=== PATIENT | female | born 1940 | race Caucasian/White ===

== ENCOUNTER → 2017-10-19 | Outpatient (CLI) | payer MEDICARE ==
[2016-09-01 03:33] VITALS: BP 158/70
[~2017-10-19] MED LIST: ACET650T89 PO; AMIO200T2 PO; ASPI-630 PO; ATOR20TA58 PO; CALC-98 PO; CEPH-264 PO; FERR-26 PO; OMEG1CAP6 PO; RIVA10TA PO; SERT50TA8 PO; SPIR25TA3 PO; SULF1TAB24 PO; TRAM50TA PO; [UNRECOGNIZED DRUG - CODE] PO
--- NOTE | 2017-10-21 15:30 | CARD ---
APPROVED REPORT EXAM: Two-dimensional and M-mode echocardiogram with Doppler and color Doppler. Other Information Quality : FairHR: [id number] Technically limited study due to body habitus. INDICATION LV Function: Murmur 2D DIMENSIONS RVDd2.5 (2.9-3.5cm)Left Atrium(2D)4.7 (1.6-4.0cm) IVSd1.1 (0.7-1.1cm)Aortic Root(2D)2.3 (2.0-3.7cm) LVDd4.1 (3.9-5.9cm)LVOT Diameter1.7 (1.8-2.4cm) PWd1.1 (0.7-1.1cm)LVDs2.5 (2.5-4.0cm) FS (%) 39.3 %SV52.0 ml LVEF(%)70.0 (>50%) Aortic Valve AoV Peak Maxwell.519.7cm/sAoV LCO076.5cm AO Peak GR.108.0mmHgLVOT Peak Maxwell.145.5cm/s AO Mean GR.66mmHgAVA (VMAX)0.48cm2 Mitral Valve MV E Peak Gr.147mmHg Pulmonary Valve PV Peak Yxqifnjv199.9cm/sPV Peak Grad.12mmHg Tricuspid Valve TR P. Hmfebbaz998nl/sTR Peak Gr.30mmHg LEFT VENTRICLE The left ventricle is normal size. There is normal left ventricular wall thickness. The left ventricu lar systolic function is normal and the ejection fraction is 70%. There is normal LV segmental wall m otion. The left ventricular diastolic function and filling is normal for age. RIGHT VENTRICLE The right ventricle is normal size. There is normal right ventricular wall thickness. The right ventr icular systolic function is normal. ATRIA The left atrium is dilated. The right atrium size is normal. The interatrial septum is intact with no evidence for an atrial septal defect or patent foramen ovale as noted on 2-D or Doppler imaging. AORTIC VALVE The aortic valve is moderately calcified. Doppler and Color Flow revealed no significant aortic regur gitation. There is moderate to severe valvular aortic stenosis. MITRAL VALVE The anterior mitral valve leaflet appears thickened, but open well. The mitral valve posterior leafle t is thickened and calcified. There is no evidence of mitral valve prolapse. The anterior leaflet is pliable and mobile while the posterior leaflet is calcified and immobile. There is mild mitral valve stenosis. Doppler and Color-flow revealed moderate to severe mitral regurgitation. TRICUSPID VALVE Tricuspid valve is not visualized very well. Doppler and Color Flow revealed mild tricuspid regurgita tion. There is no tricuspid valve prolapse or vegetation. There is no tricuspid valve stenosis. PULMONIC VALVE Pulmonic valve was difficult to visualize. Doppler and Color Flow revealed trace pulmonic valvular re gurgitation. There is no pulmonic valvular stenosis. GREAT VESSELS The aortic root is normal in size. The ascending aorta is normal in size. The pulmonary artery is nor mal. The IVC is normal in size and collapses >50% with inspiration. PERICARDIAL EFFUSION There is no pleural effusion. There is no evidence of significant pericardial effusion. Critical Notification Critical Value: No <Conclusion> The left ventricular systolic function is normal and the ejection fraction is 70%. The left atrium is dilated. The right atrium size is normal. The aortic valve is moderately calcified. There is moderate to severe valvular aortic stenosis. Doppler and Color-flow revealed moderate to severe mitral regurgitation. The anterior leaflet is pliable and mobile while the posterior leaflet is calcified and immobile. There is mild mitral valve stenosis. The anterior mitral valve leaflet appears thickened, but open well. The mitral valve posterior leaflet is thickened and calcified. Doppler and Color Flow revealed mild tricuspid regurgitation. Doppler and Color Flow revealed trace pulmonic valvular regurgitation. There is no evidence of significant pericardial effusion.
== END | disposition home or self-care (01) ==
LOC: ECHO 13:33
PROVIDERS: ATTEND Internal Medicine Cardiovascular Disease
DX: I08.3 Combined rheumatic disorders of mitral, aortic and tricuspid valves (principal)
CPT/HCPCS: 93306

== ENCOUNTER 2017-11-18 07:33 | Day surgery (SDC) | payer MEDICARE ==
[~2017-11-18 07:33] MED LIST changes: -ACET650T89 PO; -AMIO200T2 PO; -ASPI-630 PO; -ATOR20TA58 PO; -CALC-98 PO; -CEPH-264 PO; -FERR-26 PO; +HYDROmorphone 2 MG/ML VIAL IV; +LIDOCAINE 1% PF 2 ML VIAL. ID; +MORPHINE SULFATE 2 MG/ML DISP.SYRIN. IV; -OMEG1CAP6 PO; +ONDANSETRON PF 4 MG/2 ML VIAL. IV; +PROCHLORPERAZINE 10 MG/2 ML VIAL. IV; -RIVA10TA PO; -SERT50TA8 PO; -SPIR25TA3 PO; -SULF1TAB24 PO; -TRAM50TA PO; -[UNRECOGNIZED DRUG - CODE] PO; +fentaNYL PF VIAL 100 MCG/2 ML VIAL IV
[2017-11-18] MEDS: IV RINGERS,LACTATED 1000ML 1,000 ML IV (08:19)
[2017-11-18] MEDS ORDERED: BENZOCAINE ONE 20% MUCOSAL SPRAY. (09:01)
[2017-11-18] MEDS ORDERED: LIDOCAINE 2% VISCOUS 15 ML SOLUTION. (09:01)
[2017-11-18] MEDS ORDERED: LIDOCAINE 2% TOPICAL JELLY 5GM TUBE. TP (09:02)
[2017-11-18] MEDS ORDERED: LIDOCAINE 2% PF Vial for OR 5 ML VIAL. (09:10)
[2017-11-18] MEDS ORDERED: PROPOFOL 20 ML IV (09:10)
== END 2017-11-18 10:55 | disposition home or self-care (01) ==
LOC: SURG 07:33
DX: I08.0 Rheumatic disorders of both mitral and aortic valves (principal); E07.9 Disorder of thyroid, unspecified; E78.00 Pure hypercholesterolemia, unspecified; I48.91 Unspecified atrial fibrillation; K82.9 Disease of gallbladder, unspecified; Z90.49 Acquired absence of other specified parts of digestive tract; E66.9 Obesity, unspecified; Z90.710 Acquired absence of both cervix and uterus; Z90.721 Acquired absence of ovaries, unilateral; N39.0 Urinary tract infection, site not specified; M19.90 Unspecified osteoarthritis, unspecified site; F32.9 Major depressive disorder, single episode, unspecified; Z87.891 Personal history of nicotine dependence
CPT/HCPCS: 93312; 93320; 93325; J2704

== ENCOUNTER → 2018-07-26 | Outpatient (CLI) | payer MEDICARE ==
[2017-11-18 10:33] VITALS: BP 148/74
[~2018-07-26] MED LIST changes: +ACET650T89 PO; +AMIO200T4 PO; +ASPI-630 PO; +ATOR20TA58 PO; +CALC-98 PO; +CEPH-264 PO; +FERR325T14 PO; -HYDROmorphone 2 MG/ML VIAL IV; -LIDOCAINE 1% PF 2 ML VIAL. ID; -MORPHINE SULFATE 2 MG/ML DISP.SYRIN. IV; +OMEG1CAP6 PO; -ONDANSETRON PF 4 MG/2 ML VIAL. IV; -PROCHLORPERAZINE 10 MG/2 ML VIAL. IV; +RIVA10TA PO; +SERT50TA8 PO; +SPIR25TA5 PO; +SULF1TAB24 PO; +TRAM50TA PO; +[UNRECOGNIZED DRUG - CODE] PO; -fentaNYL PF VIAL 100 MCG/2 ML VIAL IV
--- NOTE | 2018-07-26 17:31 | CARD ---
MR#: [id number] Date of Study: 07/26/2018 Ordering Physician: STEVE RODRIGUEZ, Referring Physician: STEVE RODRIGUEZ Tech: Misa Aguila RDCS APPROVED REPORT EXAM: Two-dimensional and M-mode echocardiogram with Doppler and color Doppler. Other Information Quality : Fair INDICATION Aortic Valve Disease Mitral Valve Disease 2D DIMENSIONS RVDd2.8 (2.9-3.5cm)Left Atrium(2D)4.8 (1.6-4.0cm) IVSd1.6 (0.7-1.1cm)Aortic Root(2D)2.4 (2.0-3.7cm) LVDd4.3 (3.9-5.9cm)LVOT Diameter1.9 (1.8-2.4cm) PWd1.5 (0.7-1.1cm)LVDs2.2 (2.5-4.0cm) FS (%) 30.0 %SV66.3 ml LVEF(%)60.0 (>50%) Aortic Valve AoV Peak Maxwell.451.7cm/sAoV AMD651.8cm AO Peak GR.81.6mmHgLVOT Peak Maxwell.134.9cm/s AO Mean GR.52mmHgAVA (VMAX)0.84cm2 FAUSTO (VTI)0.90cm2 Mitral Valve MV E Kshtrjle273.9cm/sMV E Peak Gr.11mmHg MV DECEL [id number] A Gavsgmqu845.0cm/s MV E Mean Gr.4mmHgMV APP49at E/A Ratio0.8MVA (PHT)2.29cm2 Tricuspid Valve TR P. Rjruqfsq799zc/sRAP [id number] TR Peak Gr.97oyUqNRBB02shEq Pulmonary Vein S1 Wpecmhsn27.1cm/sD2 Gycaqula41.5cm/s LEFT VENTRICLE The left ventricle is normal size. There is concentric left ventricular hypertrophy. The left ventric ular systolic function is normal and the Ejection Fraction is 60%. There is normal LV segmental wall motion. Transmitral Doppler flow pattern is Grade I-abnormal relaxation pattern. RIGHT VENTRICLE The right ventricle is normal size. The right ventricular systolic function is normal. ATRIA The left atrium is mildly dilated. The right atrium size is normal. The interatrial septum is intact with no evidence for an atrial septal defect or patent foramen ovale as noted on 2-D or Doppler imagi ng. AORTIC VALVE The aortic valve is calcified and displays decreased opening. Doppler and Color Flow revealed no sign ificant aortic regurgitation. Calculated aortic valve area is 0.9 cm2 with maximum pressure gradient of 82 mmHg and mean pressure gradient of 52 mmHg. Doppler and color-flow analysis revealed severe aor tic stenosis. MITRAL VALVE The mitral valve is calcified and displays decreased opening. Posterior mitral annular calcification is moderate. There is no evidence of mitral valve prolapse. There is mild mitral valve stenosis. Calc ulated mitral valve area is 2.0 cm2 with maximum pressure gradient of 11 mmHg and mean pressure gradi ent of 4 mmHg. Doppler and Color-flow revealed mild mitral regurgitation. TRICUSPID VALVE The tricuspid valve is normal in structure. Doppler and Color Flow revealed trace tricuspid regurgita tion. There is moderate pulmonary hypertension. The PA pressure was estimated at 42 mmHg. There is no tricuspid valve stenosis. PULMONIC VALVE The pulmonic valve is not well visualized. Doppler and Color Flow revealed trace pulmonic valvular re gurgitation. There is no pulmonic valvular stenosis. GREAT VESSELS The aortic root is normal in size. The ascending aorta is mildly dilated at 3.4 cm. The IVC is normal in size and collapses >50% with inspiration. PERICARDIAL EFFUSION There is no evidence of significant pericardial effusion. Critical Notification Critical Value: No <Conclusion> There is concentric left ventricular hypertrophy. The left ventricular systolic function is normal and the Ejection Fraction is 60%. Transmitral Doppler flow pattern is Grade I-abnormal relaxation pattern. The left atrium is mildly dilated. The right atrium size is normal. Calculated aortic valve area is 0.9 cm2 with maximum pressure gradient of 82 mmHg and mean pressure g radient of 52 mmHg. Doppler and color-flow analysis revealed severe aortic stenosis. The mitral valve is calcified and displays decreased opening. Posterior mitral annular calcification is moderate. There is mild mitral valve stenosis. Calculated mitral valve area is 2.0 cm2 with maximum pressure gradient of 11 mmHg and mean pressure g radient of 4 mmHg. Doppler and Color-flow revealed mild mitral regurgitation. Doppler and Color Flow revealed trace tricuspid regurgitation. There is moderate pulmonary hypertension. The PA pressure was estimated at 42 mmHg. The pulmonic valve is not well visualized. The ascending aorta is mildly dilated at 3.4 cm. There is no evidence of significant pericardial effusion. Signed by : Steve Rodriguez MD Electronically Approved : 07/26/2018 17:30:43
== END | disposition home or self-care (01) ==
LOC: ECHO 08:36
PROVIDERS: ATTEND Internal Medicine Cardiovascular Disease
DX: I35.8 Other nonrheumatic aortic valve disorders (principal); I05.0 Rheumatic mitral stenosis; I35.0 Nonrheumatic aortic (valve) stenosis; I27.20 Pulmonary hypertension, unspecified; E78.5 Hyperlipidemia, unspecified; M17.9 Osteoarthritis of knee, unspecified; E78.00 Pure hypercholesterolemia, unspecified; E03.9 Hypothyroidism, unspecified; Z87.891 Personal history of nicotine dependence; Z90.710 Acquired absence of both cervix and uterus
CPT/HCPCS: 93306

== ENCOUNTER → 2021-05-19 | Outpatient (CLI) | payer MEDICARE ==
[2017-11-18 10:33] VITALS: BP 148/74
[~2021-05-19] MED LIST changes: -AMIO200T4 PO; +AMIO200T6 PO; +CARV25TA2 PO; +CHOL-5 PO; +FURO20TA3 PO; +LOSA100T14 PO; +PANT40TA77 PO; +SERT-267 PO; -SERT50TA8 PO
[2021-05-19 10:35] LABS: BASO # 0.1 x10^3/uL (0.0-0.2); BASO % 1 % (0-3); EOS # 0.2 x10^3/uL (0.0-0.7); EOS % 4 % (0-3); HEMATOCRIT 39.7 % (36.0-47.0); HEMOGLOBIN 13.4 g/dL (12.0-15.5); LYMPH # 1.6 x10^3/uL (1.0-4.8); LYMPH % 26 % (24-48); MEAN CORPUSCULAR HEMOGLOBIN 30 pg (25-35); MEAN CORPUSCULAR HGB CONC 34 g/dL (31-37); MEAN CORPUSCULAR VOLUME 90 fL (79-100); MONO # 0.4 x10^3/uL (0.0-1.1); MONO % 7 % (0-9); NEUT # 3.8 x10^3/uL (1.8-7.7); NEUT % 63 % (31-73); PLATELET COUNT 169 x10^3/uL (140-400); RED BLOOD COUNT 4.41 x10^6/uL (3.50-5.40); RED CELL DISTRIBUTION WIDTH 14.1 % (11.5-14.5); WHITE BLOOD COUNT 6.1 x10^3/uL (4.0-11.0)
[2021-05-19 10:44] LABS: PROTHROMBIN TIME PATIENT 12.9 SEC (11.7-14.0)
[2021-05-19 10:46] LABS: ALBUMIN 3.7 g/dL (3.4-5.0); CREATININE 1.1 mg/dL (0.6-1.0); GFR 47.8; POTASSIUM 4.7 mmol/L (3.5-5.1)
[2021-05-19 10:50] LABS: BILIRUBIN,URINE NEGATIVE (NEG); CLARITY,URINE CLEAR; COLOR,URINE YELLOW; NITRITE,URINE NEGATIVE (NEG); PROTEIN,URINE NEGATIVE (NEG-TRACE); UROBILINOGEN,URINE 0.2 mg/dL (0.2 mg/dL)
[2021-05-19 10:57] LABS: BACTERIA,URINE MODERATE /HPF (0-FEW)
[2021-05-19 10:58] LABS: RBC,URINE 0 /HPF (0-2)
--- NOTE | 2021-05-19 11:30 | NUR ---
SPOKE WITH DR LAU'S NURSE, OWEN , REGARDING PATIENT STOPPING XARELTO. DR LAU REQUESTS PATIENT'S ELECTRIC SHOVEL OPERATOR TO SUGGEST STOP DATE. SPOKE WITH PATIENT'S ELECTRIC SHOVEL OPERATOR, DR OTERO, NURSE TO SEE STOP DATE FOR XARELTO. DR OTEOR IS REFERRING TO SURGEON FOR STOP DATE.
--- NOTE | 2021-05-19 15:27 | RAD ---
EXAM: CHEST 2 VIEWS. HISTORY: Preoperative risk factors. COMPARISON: 05/31/2016. FINDINGS: Frontal and lateral views of the chest are obtained. There are mild interstitial opacities in both bases. These have increased slightly since 2016, consis tent with interstitial lung disease. There is a calcified granuloma in the right base. There is no pn eumothorax or pleural effusion. The heart is moderately enlarged. There are atherosclerotic calcifica tions of the aorta. IMPRESSION: 1. Bibasilar interstitial lung disease has progressed slightly since 2016. 2. Moderate cardiomegaly. Electronically signed by: Troy Booker MD (05/19/2021 3:24 PM) [id number]
[2021-05-20 00:09] LABS: HEMOGLOBIN A1C 5.3 % (4.8-5.6)
== END ==
LOC: SURGPAT 10:04
PROVIDERS: ATTEND Orthopaedic Surgery
DX: Z01.818 Encounter for other preprocedural examination (principal); I51.7 Cardiomegaly; I70.0 Atherosclerosis of aorta; J84.9 Interstitial pulmonary disease, unspecified; M17.11 Unilateral primary osteoarthritis, right knee; Z96.651 Presence of right artificial knee joint
CPT/HCPCS: 36415; 71046; 80048; 81001; 82040; 82306; 83036; 85025; 85610; 85651; 85730; 87077; 87086; 87186; 87641

== ENCOUNTER → 2021-06-12 | Outpatient (CLI) | payer MEDICARE ==
[2017-11-18 10:33] VITALS: BP 148/74
[2021-06-12 10:42] LABS: BILIRUBIN,URINE NEGATIVE (NEG); CLARITY,URINE CLEAR; COLOR,URINE YELLOW; NITRITE,URINE NEGATIVE (NEG); PH,URINE 7.5 (<5.0-8.0); PROTEIN,URINE NEGATIVE (NEG-TRACE); UROBILINOGEN,URINE 0.2 mg/dL (0.2 mg/dL)
[2021-06-12 10:53] LABS: WBC,URINE OCC /HPF (0-4)
[2021-06-12 10:54] LABS: BACTERIA,URINE 0 /HPF (0-FEW); RBC,URINE 0 /HPF (0-2)
== END ==
LOC: LAB 09:37
PROVIDERS: ATTEND Orthopaedic Surgery
DX: N39.0 Urinary tract infection, site not specified (principal)
CPT/HCPCS: 81001

== ENCOUNTER → 2021-07-08 | Outpatient (CLI) | payer MEDICARE ==
[2017-11-18 10:33] VITALS: BP 148/74
[~2021-07-08] MED LIST changes: +OXYC5CAP PO
[2021-07-08 12:50] LABS: BASO # 0.1 x10^3/uL (0.0-0.2); BASO % 1 % (0-3); EOS # 0.2 x10^3/uL (0.0-0.7); EOS % 3 % (0-3); HEMATOCRIT 40.4 % (36.0-47.0); HEMOGLOBIN 13.7 g/dL (12.0-15.5); LYMPH # 1.8 x10^3/uL (1.0-4.8); LYMPH % 26 % (24-48); MEAN CORPUSCULAR HEMOGLOBIN 30 pg (25-35); MEAN CORPUSCULAR HGB CONC 34 g/dL (31-37); MEAN CORPUSCULAR VOLUME 89 fL (79-100); MONO # 0.5 x10^3/uL (0.0-1.1); MONO % 7 % (0-9); NEUT # 4.3 x10^3/uL (1.8-7.7); NEUT % 62 % (31-73); PLATELET COUNT 127 x10^3/uL (140-400); RED BLOOD COUNT 4.55 x10^6/uL (3.50-5.40); RED CELL DISTRIBUTION WIDTH 14.1 % (11.5-14.5); WHITE BLOOD COUNT 6.9 x10^3/uL (4.0-11.0)
[2021-07-08 13:00] LABS: ALBUMIN 3.7 g/dL (3.4-5.0); CALCIUM 9.2 mg/dL (8.5-10.1); CREATININE 1.3 mg/dL (0.6-1.0); GFR 39.3; POTASSIUM 4.7 mmol/L (3.5-5.1)
[2021-07-08 13:09] LABS: PROTHROMBIN TIME PATIENT 13.3 SEC (11.7-14.0)
[2021-07-09 01:25] LABS: HEMOGLOBIN A1C 5.5 % (4.8-5.6)
== END ==
LOC: SURGPAT 12:06
PROVIDERS: ATTEND Orthopaedic Surgery
DX: Z01.818 Encounter for other preprocedural examination (principal); M17.11 Unilateral primary osteoarthritis, right knee
CPT/HCPCS: 36415; 80048; 82040; 82306; 83036; 85025; 85610; 85651; 85730; 87641